=== PATIENT | female | born 1975 | race Caucasian/White ===

== ENCOUNTER 2017-06-23 12:16 | Emergency (ER) | payer OTHER ==
[~2017-06-23] VITALS: Ht 160 cm; Wt 72.6 kg
[~2017-06-23 12:16] MED LIST: CIPRO500 MG PO; IBUPROFEN 800800 M1 PO; NORCO 5-325 TA1 EACH PO
[2017-06-23] MEDS ORDERED: TIZANIDINE HCL4 M1 PO (14:10)
[2017-06-23] MEDS ORDERED: NAPROSYN500 MG PO (14:10)
[2017-06-23] MEDS ORDERED: NORCO 5-325 TA1 EACH PO (14:10)
[2017-06-23 14:27] VITALS: BP 131/77
== END 2017-06-23 14:28 | disposition home or self-care (01) ==
LOC: M.ERS 12:16
DX: M54.42 Lumbago with sciatica, left side (principal); F17.210 Nicotine dependence, cigarettes, uncomplicated